=== PATIENT | male | born 1945 | race Caucasian/White ===

== ENCOUNTER → 2023-05-10 06:53 | Outpatient (REF) | payer OTHER, SELFPAY | LOC: RAD 06:53 | PROVIDERS: ATTENDING PHYSICIAN Internal Medicine Gastroenterology; FAMILY PHYSICIAN Family Medicine | DX: K70.30 Alcoholic cirrhosis of liver without ascites (principal) | CPT/HCPCS: 76700 ==

== ENCOUNTER 2023-08-15 15:10 | Inpatient (IN) | payer OTHER, SELFPAY ==
[2023-08-15] VITALS (14 sets, daily range): BP systolic 94–127; BP diastolic 60–87; BMI 25.3
[2023-08-15 08:43] LABS: % Basophils 0.1 % (0-2); % Eosinophils 2.2 % (0-6); % Immature Granulocytes 0.4 % (0-0.5); % Lymphocytes 14.6 % (20.5-51.1); % Monocytes 7.6 % (1.7-9.3); % Neutrophils 75.1 % (42.2-75.2); Absolute Eosinophils 0.3 10^3/uL (0-0.7); Absolute Immature Granulocytes 0.1 10^3/uL (0-0.05); Hematocrit 53.6 % (39.0-52.0); Hemoglobin 19.6 g/dL (13.0-18.0); Mean Corp Hgb Conc. 36.6 g/dL (33.0-37.0); Mean Corpuscular Hgb 33.1 pg (27.0-31.0); Mean Corpuscular Volume 90.5 fL (80.0-94.0); Mean Platelet Volume 10.4 fL (7.4-10.4); Nucleated Red Blood Cells % 0 % (-); Platelet Count 210 10^3/uL (130-400); Red Blood Cell Count 5.92 10^6/uL (4.70-6.10); Red Cell Dist. Width 13.6 % (11.5-14.5); White Blood Cell Count 13.4 10^3/uL (4.8-10.8)
[2023-08-15 08:56] LABS: ALT (SGPT) 24 U/L (0-50); AST (SGOT) 22 U/L (17-59); Albumin 4.4 g/dl (3.5-5.0); Alkaline Phosphatase 63 U/L (38-126); Blood Urea Nitrogen 15 mg/dl (9-20); Calcium 10.1 mg/dl (8.4-10.2); Carbon Dioxide 27 mmol/L (22-30); Chloride 103 mmol/L (98-107); Glucose 156 mg/dl (70-99); Potassium 5.2 mmol/L (3.5-5.1); Sodium 142 mmol/L (135-145); Total Bilirubin 1.8 mg/dl (0.2-1.3); Total Protein 7.4 g/dl (6.3-8.2); eGFR > 60.00
[2023-08-15 09:07] LABS: NT-proBNP 408 pg/ml; Troponin I < 0.012 ng/ml
--- NOTE | 2023-08-15 09:35 | ED.GENMED ---
History of Present Illness
General
Chief Complaint: Dizziness
Source: patient
Time Seen by Provider: 08/15/23 09:05
Travel History
Have you had any contact with someone who has COVID-19?: No
Do you have any symptoms of coronavirus? Fever > 100 degrees, chills, cough, shortness of breath, sore throat, loss of taste or smell, muscle aches, or headache?: No
History of Present Illness
History of Present Illness:
78-year-old male with past medical history of pulmonary fibrosis, hypertension presenting to the emergency department for evaluation of lightheadedness that started this past , during that time patient states he started to feel progressively
worse with symptoms including some mild shortness of breath, breaking out in cold sweats with exertion, low pulse ox and low blood pressure. Patient states that today his blood pressure was around 80/60 which had him concerned and came to the ER to
be further evaluated. Patient denies any known fevers, known sick contacts, recent travel or recent antibiotics. He denies any coughing, chest pain, bowel changes, urinary symptoms. He states he was having a hard time tolerating his medications
and he did not take his Cardizem or metoprolol due to concerns of already having a low blood pressure.
Past History
Past History
ED Past Medical History: HTN, Psychiatric and Other (Pulmonary fibrosis)
ED Past Surgical History: Orthopedic and Other (Ureteral obstruction at age 16)
Social History
Tobacco: Non-smoker
Alcohol: None
Drug: None
Personal:
Living: with family
Employment: Employed
Review of Systems
Review of Systems
All Other Systems: ROS reviewed and negative except as documented in HPI and ROS
Phy Exam
Physical Exam
Physical Exam:
GENERAL: Alert , in no apparent distress
HEAD: NCAT
EYE: clear conjunctiva
NECK: Supple
ENT: o/p clr, mmm.
CARDIAC: Tachycardic rate and rhythm, no murmur, heart rate between 134 and 142 bpm
LUNGS: Rales bibasilar which patient reports is common, no accessory muscle use, no tachypnea, no wheezing or rhonchi
ABDOMEN: Soft, without focal tenderness, no r/g, no cvat
NEUROLOGICAL: Alert and oriented
SKIN: Warm and dry, skin intact.
MUSCULOSKELETAL: no edema, well perfused.
PSYCH: Normal and appropriate interaction.
Scores
Heart Failure Risk
Heart Failure Risk Score: Not Applicable
Heart Score for Chest Pain Patients
STEMI patient?: Not applicable
Withdrawal Assessment of Alcohol
Withdrawal Assessment Completed?: Not applicable
Course
Orders/Labs/Results
Orders:
Orders
08/15/23 07:54
ECG [Electrocardiogram (*1)] Urgent
Reason for Study: Vertigo / Dizzy
EKG- Treatment ONCE
08/15/23 08:35
Complete Blood Count/With Diff Urgent
Comprehensive Metabolic Panel Urgent
NT-proBNP Urgent
Troponin I Urgent
08/15/23 09:17
0.9% Sodium Chloride 1000 ml [Nss] 1,000 ml IV BOLUS
08/15/23 09:18
Urinalysis Reflex To Culture Urgent
Date Specimen was Collected: 08/15/23
Time Specimen was Collected: 09:20
CR Chest - 2 Views Urgent
Comment:
Reason For Exam: mild hypoxia, tachy
08/15/23 09:19
Add On- LAB Urgent
Tests Added?: d-dimer
08/15/23 09:51
Lactic Acid Q4H
Comment: CANCEL 2nd LACTIC ACID IF 1st LACTIC ACID IS LESS THAN 2
PTT Urgent
Prothrombin Time Urgent
Blood Culture Q30M
MARQUIS Source: Blood/Venous
Specimen Description:
08/15/23 09:56
Blood Culture Q30M
MARQUIS Source: Blood/Venous
Specimen Description:
08/15/23 10:28
CefTRIAXone [Rocephin] 1,000 mg IV NOW STA
Doxycycline [Vibramycin] 100 mg PO NOW STA
08/15/23 11:55
COVID-19 Antigen Urgent
Source: Nasal Swab
08/15/23 13:30
Lactic Acid Q4H
Comment: CANCEL 2nd LACTIC ACID IF 1st LACTIC ACID IS LESS THAN 2
Abnormal Lab Results
08/15/23 08/15/23
08:35 09:51
WBC 13.4 H 10^3/uL
(4.8-10.8)
Hgb 19.6 H g/dL
(13.0-18.0)
Hct 53.6 H %
(39.0-52.0)
MCH 33.1 H pg
(27.0-31.0)
Abs Immat Gran (auto) 0.1 H 10^3/uL
(0-0.05)
Absolute Neuts (auto) 10.0 H 10^3/uL
(1.4-6.5)
Absolute Monos (auto) 1.0 H 10^3/uL
(0.1-0.6)
Lymphocytes % 14.6 L %
(20.5-51.1)
PT 15.4 H Sec
(11.4-14.6)
APTT 38.4 H Sec
(23.4-35.0)
Potassium 5.2 H mmol/L
(3.5-5.1)
Glucose 156 H mg/dl
(70-99)
Lactic Acid 2.8 H mmol/L
(0.7-2.0)
Total Bilirubin 1.8 H mg/dl
(0.2-1.3)
08/15/23 08:35
08/15/23 08:35
Vital Signs
Initial and Last Documented VS:
Initial Vital Signs
Pulse Resp BP Pulse Ox
148 18 127/87 96
08/15/23 07:51 08/15/23 07:51 08/15/23 07:51 08/15/23 07:51
Last Documented Vital Signs
Pulse Resp BP Pulse Ox
134 30 107/85 94
08/15/23 08:45 08/15/23 08:45 08/15/23 08:23 08/15/23 08:45
MDM/Problems Addressed
Differential Diagnosis Includes:
Pneumonia, exacerbation of pulmonary fibrosis, CHF, cardiac dysrhythmia, orthostasis
MDM/Problems Addressed:
78-year-old male presenting emergency department for evaluation of persistent lightheadedness over the last 3 to 4 days. He noted hypotension at home and he arrives to the emergency department here hypotensive with blood pressure of 94/6. Heart
rate between 134 and 102 bpm. He is afebrile with an oral temperature of 98.6. Patient is overall fairly well-appearing in no acute distress but vital signs are certainly concerning. Labs have been initiated upon arrival and show a leukocytosis
but no bandemia. Chemistry is unremarkable. Negative troponin as well as BNP. 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 Will check a chest x-ray to further assess. Fluids ordered. Reassessment following.
Chronic conditions affecting care: Other (Pulmonary fibrosis)
*Radiology
Radiology exam reviewed: radiology read reviewed
*Pulse Oximetry
Patient hypoxic: no
*EKG
Interpreted by ED Provider?: Yes
Heart Rate: 137
Rate: tachycardiac
Rhythm: sinus
Ischemia: non-specific ST changes (lateral leads)
*Lobby Porter Interpretation
Rate: tachycardiac
Rhythm: sinus
*Critical Care Note
Total Time (30-74mins, 75-104mins- exclusive of procedures): Not Applicable
Data Reviewed
Review of Other/Old Records Reveals: Labs and Records
Source: patient and records
Patient Management
Discussion with other providers: Hospitalist
Escalation/DeEscalation of care consider admission/obs:
Patient's chest x-ray shows changes consistent with his pulmonary fibrosis and emphysema. Lab work shows leukocytosis with an elevated lactic acid. Patient's heart rate is improved with IV fluids however still tachycardic around 120 bpm. Given
his vital sign abnormalities combined with his lab work decision was made to treat patient for community-acquired pneumonia. Will admit to hospitalist service who accepts for continued evaluation and treatment.
ED Attending Note
-
Portions of this chart may have been created with voice recognition software.� Occasional wrong word or��sound alike� substitutions may have occurred due to the inherent limitations of voice recognition software.
Discharge Plan
Departure
Patient Disposition: Admit
Date of Disposition: 08/15/23
Time of Disposition: 10:35
Presentation/result/management discussed w/ accepting MD/DO: Hospitalist
Discharge Problem:
Pulmonary fibrosis, Hypotension, unspecified
Prescriptions:
No Action
atorvastatin 40 mg Tablet
40 mg PO QPM
aspirin 81 mg Tablet,Delayed Release (Dr/Ec)
81 mg PO DAILY
spironolactone 25 mg Tablet
12.5 mg PO DAILY
diltiazem HCl 120 mg Capsule,Extended Release 24 Hr
120 mg PO DAILY
pirfenidone [Esbriet] 267 mg Capsule
801 mg PO TID
metoprolol succinate [Toprol XL] 50 mg Tablet Extended Release 24 Hr
50 mg PO BID
gabapentin 300 mg Capsule
300 mg PO TID
duloxetine [Cymbalta] 30 mg Capsule,Delayed Release(Dr/Ec)
30 mg PO BID
Wegovy 1.7 mg/0.75 mL Pen Injector
1.7 mg SC HOLLAND
Referrals:
Cleveland Keys MD [Family Provider] -
Interventions
Interventions:
*ED COVID-19 Vaccine History Last Done: 08/15/23 08:00
Discharge Date and Time
Print Language: CONGOLESE
[2023-08-15] MEDS: NSS 1000 IV (09:46)
[2023-08-15 10:27] LABS: Lactic Acid 2.8 mmol/L (0.7-2.0)
[2023-08-15 11:00] LABS: INR 1.24; PT 15.4 Sec (11.4-14.6)
[2023-08-15 11:01] LABS: APTT 38.4 Sec (23.4-35.0)
[2023-08-15] MEDS: ROCEPHIN 1000 MG IV (11:33)
[2023-08-15] MEDS: VIBRAMYCIN 100 MG PO (11:34)
[2023-08-15 12:20] LABS: COVID-19 Antigen Negative (Negative)
--- NOTE | 2023-08-15 14:58 | HPS.HSE ---
Addendum entered and electronically signed by Leo Murray MD 08/15/23 15:24:
Broadened to vancomycin, Zosyn decompensated; follow-up MRSA swab
Original Note:
Family Physician
-
Family Physician: Cleveland Keys
Chief Complaint
-
Hypertension, lightheaded
History of Present Illness
78-year-old male with past medical history of hypertension, CAD, pulmonary fibrosis now presenting for lightheadedness. Patient symptoms started this past , continue to get worse. Associate symptoms include mild shortness of breath,
diaphoresis with exertion. Also noted to have lower pulse ox and blood pressure. Blood pressure was noted to be 80/60 which prompted hospital evaluation. Patient denies sick contacts, otherwise no fever or chills, recent travel. No productive
cough, chest pain, diarrhea, urinary symptoms. BP noted to be 96/70, heart rate 120, respiratory rate 28, 93% on room air. White count 13.4, potassium 5.2, lactate 2.8, total bilirubin 1.8 although alk phos 63. Pending UA. SARS-CoV-2 negative.
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 Has had urine cultures positive for Klebsiella pneumoniae in the past.
Medical History
Past Medical History
Past Medical History: Reports Other
Additional Past Medical History:
chronic right UPJ obstruction, hepatitis, hepatic cirrhosis, pulmonary fibrosis, hypertension, and coronary artery disease
Past Surgical History: Reports Other
Additional Past Surgical History:
Right rotator cuff repair, left lung biopsy, right ureteral obstruction surgery when he was 16
Social History
Tobacco: Former Smoker
Alcohol: Former
Drug: None
Family History
Family History: Not pertinent
Allergies / Home Medications
Allergies reflects when Allergies were last updated in [facility].
Home Medications with original date entered in [facility]
Allergy/Medication List:
Allergies
Allergy/AdvReac Type Severity Reaction Status Date / Time
Penicillins Allergy swelling Verified 12/13/21 08:58
of hands
Home Medications Table - record
Medication Instructions Recorded Confirmed
acetaminophen 325 mg tablet 650 mg PO Q4HPRN PRN rib pains 09/27/22 09/27/22
(Tylenol)
aspirin 81 mg tablet,delayed 81 mg PO DAILY 09/27/22 09/27/22
release
atorvastatin 40 mg tablet 40 mg PO QPM 09/27/22 09/27/22
diltiazem HCl 120 mg capsule,24 120 mg PO DAILY 09/27/22 09/27/22
hr,extended release
metoprolol succinate 50 mg 50 mg PO BID 09/27/22 09/27/22
tablet,extended release 24 hr
(Toprol XL)
pirfenidone 267 mg capsule 801 mg PO TID 09/27/22 09/27/22
(Esbriet)
spironolactone 25 mg tablet 12.5 mg PO DAILY 09/27/22 09/27/22
ticagrelor 90 mg tablet (Brilinta) 90 mg PO BID 09/27/22 09/27/22
Review of Systems
-
History Source: Patient
A 12 point ROS was completed and negative except as noted: Yes
Physical Exam
Vital Signs
Vital Signs
Pulse Resp BP Pulse Ox
120 28 107/76 93
08/15/23 13:00 08/15/23 13:00 08/15/23 13:00 08/15/23 13:00
Physical Exam
General: Well Developed and Well Nourished
HEENT: NormoCephalic
Respiratory: Other (ales bibasilar which patient reports is common, no accessory muscle use, no tachypnea, no wheezing or rhonchi)
Cardiac: S1/S2 and Tachycardia
GI: Non Tender
Musculoskeletal: No Clubbing
Skin: Warm and Dry
Neuro: Awake, Alert, Oriented and AO x 3
Hematologic/Lymphatic: No Lymphadenopathy
Psych: Calm
Laboratory Results
-
08/15/23 08:35
08/15/23 08:35
Laboratory Results
PT 15.4 Sec (11.4-14.6) H 08/15/23 09:51
INR 1.24 08/15/23 09:51
APTT 38.4 Sec (23.4-35.0) H 08/15/23 09:51
Lactic Acid 2.8 mmol/L (0.7-2.0) H 08/15/23 09:51
Total Bilirubin 1.8 mg/dl (0.2-1.3) H 08/15/23 08:35
AST 22 U/L (17-59) 08/15/23 08:35
ALT 24 U/L (0-50) 08/15/23 08:35
Alkaline Phosphatase 63 U/L (38-126) 08/15/23 08:35
Troponin I < 0.012 ng/ml 08/15/23 08:35
Data Reviewed
-
Diagnostic Radiology: Image Personally Visualized and interpreted and Report Reviewed by me
Lab Data: Labs Reviewed by me
Impression/Plan
-
IMPRESSION:
78-year-old male with past medical history of hypertension, CAD, pulmonary fibrosis now presenting for lightheadedness. Admitted for hypotension, suspected to be in severe sepsis. Cannot rule out cardiac cause.
PLAN:
#Severe sepsis
� maintain MAP greater than 65
� Possible urinary source although does not have any symptoms. 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
- No obvious pulmonary pathology on x-ray although difficult to ascertain due to known pulmonary fibrosis
� Follow-up procalcitonin, possibly has a retrocardiac opacity
� Continue ceftriaxone, azithromycin
� Follow-up blood cultures, sputum cultures if expectorating, urine cultures
� Ensure lactate trending down
� IV fluids, 1 bolus now, continuous IV fluids for least 1 day
� Hold antihypertensives
#Dyspnea
�Possibly secondary to sepsis although has history of CAD
� Treat as above
� Maintain O2 over 92%
� Follow-up troponins
� Follow-up echo to ensure no wall motion abnormality
� No chest pain
� Continue aspirin, statin
#Hyperkalemia
� Mild
� Continue to monitor
#Hepatic cirrhosis
#Hepatitis C
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
#Pulmonary fibrosis
see plan above
Sees pulmonology outpatient in [place]
He is on Esbriet [place].
#Benign essential hypertension
Holding spironolactone, diltiazem and metoprolol due to severe sepsis
#Coronary artery disease
No chest pain
Continue aspirin, statin
- was on ?Brilinta in the past
DVT prophylaxis�HSQ
Full code
[2023-08-15 15:45] LABS: Urine Albumin Trace (Neg - Trace); Urine Bilirubin 1+ (Negative); Urine Character Slightly Cloudy (Clear); Urine Color Yellow; Urine Glucose Negative (Negative); Urine Ketone Trace (Negative); Urine Leukocyte Trace (Negative); Urine Nitrite Negative (Negative); Urine Occult Blood Negative (Negative); Urine Specific Gravity 1.015 (<1.030); Urine Urobilinogen 1+ (Neg - 1+)
[2023-08-15 15:53] LABS: Lactic Acid 1.7 mmol/L (0.7-2.0)
[2023-08-15 15:59] LABS: Urine Bacteria Few (Negative); Urine Mucus Few
[2023-08-15 16:00] LABS: Urine Red Blood Cell 0-2 /HPF (0-2); Urine White Cell 0-2 /HPF (0-5)
[2023-08-15] MEDS: NEURONTIN 300 MG PO ×2 (17:07→21:00)
[2023-08-15] MEDS: LIPITOR 40 MG PO (17:07)
[2023-08-15] MEDS: HEPARIN 5000 UNITS SC (17:07)
[2023-08-15] MEDS: ASPIR LOW (ENTERIC COATED) 81 MG PO (17:07)
[2023-08-15] MEDS: LR 1000 IV ×2 (17:09→18:23)
--- NOTE | 2023-08-15 17:10 | W.PN.UPDATE ---
Update Note
Progress Note Update
Received text from RN that patient is allergic to azithromycin. Discussed with primary attending will DC azithromycin and start patient on doxycycline. Orders placed.
[2023-08-15 17:30] LABS: Troponin I 0.013 ng/ml
[2023-08-15 17:38] LABS: Procalcitonin 0.06 ng/ml (0.0-0.25)
[2023-08-15] MEDS: NON-FORMULARY ITEM 801 MG PO (17:59)
[2023-08-15] MEDS: ZOFRAN 4 MG IV (18:00)
[2023-08-15] MEDS: CYMBALTA DELAYED RELEASE 30 MG PO (20:23)
[2023-08-15] MEDS: VIBRAMYCIN 260 MG IV (21:23)
[2023-08-15] MEDS: NON-FORMULARY ITEM 1 MG PO (21:25)
[2023-08-15 22:26] LABS: Troponin I < 0.012 ng/ml
[2023-08-16] VITALS (7 sets, daily range): BP systolic 102–125; BP diastolic 63–78; PULSE 91; O2SAT 94
[2023-08-16] MEDS: HEPARIN 5000 UNITS SC (01:03)
[2023-08-16 04:46] LABS: Hematocrit 38.3 % (39.0-52.0); Hemoglobin 13.9 g/dL (13.0-18.0); Mean Corp Hgb Conc. 36.3 g/dL (33.0-37.0); Mean Corpuscular Hgb 32.9 pg (27.0-31.0); Mean Corpuscular Volume 90.8 fL (80.0-94.0); Mean Platelet Volume 9.8 fL (7.4-10.4); Platelet Count 89 10^3/uL (130-400); Red Blood Cell Count 4.22 10^6/uL (4.70-6.10); Red Cell Dist. Width 13.4 % (11.5-14.5); White Blood Cell Count 6.3 10^3/uL (4.8-10.8)
[2023-08-16 05:03] LABS: Troponin I < 0.012 ng/ml
[2023-08-16 05:19] LABS: Blood Urea Nitrogen 12 mg/dl (9-20); Calcium 8.6 mg/dl (8.4-10.2); Carbon Dioxide 28 mmol/L (22-30); Chloride 107 mmol/L (98-107); Estimated Creatinine Clearance 81 ml/min; Glucose 90 mg/dl (70-99); Potassium 3.8 mmol/L (3.5-5.1); Sodium 139 mmol/L (135-145); eGFR > 60.00
[2023-08-16 05:39] LABS: TSH 0.87 uIU/ml (0.47-4.68)
[2023-08-16] MEDS: LR 1000 IV (05:45)
--- NOTE | 2023-08-16 09:51 | W.PN.HOSP.TC ---
Today's Communication/Plan
-
see A/P
Assessment / Plan
Assessment / Plan
HPI: 78-year-old male with past medical history of hypertension, CAD, pulmonary fibrosis; p/w lightheadedness, mild shortness of breath, diaphoresis with exertion. Also noted to have lower pulse ox and blood pressure (noted to be 80/60 which
prompted hospital evaluation).
Patient denies sick contacts, otherwise no fever or chills, recent travel. No productive cough, chest pain, diarrhea, urinary symptoms.
CXR:
1. MODERATE COMBINED EMPHYSEMA and INTERSTITIAL PULMONARY FIBROSIS.
2. Severe calcific atherosclerotic plaque in the coronary arteries.
A/P:
# Severe sepsis POA
# resolved lactic acidosis
Possible urinary source although does not have any symptoms. 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
follow blood Cx, urine Cx
Procal 0.06
COVID negative
No obvious pulmonary pathology on x-ray although difficult to ascertain due to known pulmonary fibrosis
Continue ceftriaxone, changed azithromycin to doxycycline due to allergy history
hold further IVF with improved BP
Hold antihypertensives spironolactone, diltiazem and metoprolol due to severe sepsis
# Dyspnea, Possibly secondary to sepsis although has history of CAD
No chest pain
Maintain O2 over 92%
troponins negative
Can check echo
Continue aspirin, statin
# Hyperkalemia
Mild and resolved
# Hepatic cirrhosis
# Hepatitis C
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
# Pulmonary fibrosis
Sees pulmonology outpatient in [place]
He is on Esbriet [place].
# Benign essential hypertension
Holding spironolactone, diltiazem and metoprolol due to severe sepsis
# Coronary artery disease
No chest pain
Continue aspirin, statin
was on ?Brilinta in the past
DVT prophylaxis�HSQ
Full code
Anticipated Discharge: > 48 hours
Subjective/Interval History
-
Date of Service: August 16, 2023
Objective Data
-
Labs:
Laboratory Results
08/16/23
04:30
WBC 6.3
Hgb 13.9 D
Hct 38.3 L
Plt Count 89 L D
Sodium 139
Potassium 3.8 D
Chloride 107
Carbon Dioxide 28
BUN 12
Creatinine 0.8
Glucose 90
Calcium 8.6 D
Vital Signs:
Vital Signs
Temp Pulse Resp BP Pulse Ox
36.9 C 95 16 110/68 95
08/16/23 07:20 08/16/23 07:20 08/16/23 07:20 08/16/23 07:20 08/16/23 07:20
I&O
08/15/23 08/16/23 08/17/23
06:59 06:59 06:59
Intake Total 1480 / 1480
Output Total 100 / 100
Balance 1380 / 1380
Review of Systems
-
All other systems: Reviewed and negative
Physical Exam
-
General: Well Developed, Well Nourished, No Apparent Distress, Comfortable and Conversant; Negative Respiratory Distress
HEENT: Normocephalic, Atraumatic, Nose Appears Normal and Ears Appear Normal; Negative Oxygen
Respiratory: Clear to Auscultation and Non Labored Respirations; Negative Accessory Resp Muscle Use
Cardiac: Regular Rhythm, S1/S2 and Tachycardic
GI: Soft, Nontender, Nondistended and Normal Bowel Sounds
Skin: Warm and Dry
Neuro: Awake, Alert, Oriented, AO x 3 and Nonfocal/Grossly Intact
Psych: Calm and Intact Judgement/Insight
Data Reviewed
-
Diagnostic Radiology: Report Reviewed by me
Labs: Labs Reviewed by me
[2023-08-16] MEDS: NEURONTIN 300 MG PO ×3 (10:21→21:26)
[2023-08-16] MEDS: CYMBALTA DELAYED RELEASE 30 MG PO ×2 (10:21→20:35)
[2023-08-16] MEDS: NON-FORMULARY ITEM 801 MG PO ×3 (10:22→21:26)
[2023-08-16] MEDS: HEPARIN SC (10:22)
[2023-08-16] MEDS: ASPIR LOW (ENTERIC COATED) 81 MG PO (10:25)
[2023-08-16] MEDS: VIBRAMYCIN 260 MG IV (10:26)
[2023-08-16] MEDS: FLUSH (NSS) 1 FLUSH IV ×2 (12:48→12:49)
[2023-08-16] MEDS: STERILE WATER FOR INJECTION 10 ML IV (12:49)
[2023-08-16] MEDS: ROCEPHIN 1000 MG IV (12:50)
[2023-08-16] MEDS: LIPITOR 40 MG PO (17:02)
[2023-08-16] MEDS: LOVENOX 40 MG SC (17:04)
[2023-08-16] MEDS: VIBRAMYCIN 100 MG PO (20:34)
[2023-08-17] VITALS (7 sets, daily range): BP systolic 123–171; BP diastolic 73–95
[2023-08-17 06:29] LABS: Mean Corp Hgb Conc. 35.1 g/dL (33.0-37.0); Mean Corpuscular Hgb 32.6 pg (27.0-31.0); Mean Corpuscular Volume 92.7 fL (80.0-94.0); Platelet Count 67 10^3/uL (130-400); Red Blood Cell Count 3.99 10^6/uL (4.70-6.10); Red Cell Dist. Width 13.4 % (11.5-14.5)
[2023-08-17 06:43] LABS: Blood Urea Nitrogen 9 mg/dl (9-20); Calcium 8.6 mg/dl (8.4-10.2); Carbon Dioxide 29 mmol/L (22-30); Chloride 106 mmol/L (98-107); Estimated Creatinine Clearance 81 ml/min; Glucose 84 mg/dl (70-99); Magnesium 1.7 mg/dl (1.6-2.3); Sodium 139 mmol/L (135-145); eGFR > 60.00
--- NOTE | 2023-08-17 09:24 | W.PN.HOSP.TC ---
Today's Communication/Plan
-
see A/P
Assessment / Plan
Assessment / Plan
HPI: 78-year-old male with past medical history of hypertension, CAD, pulmonary fibrosis; p/w lightheadedness, mild shortness of breath, diaphoresis with exertion. Also noted to have lower pulse ox and blood pressure (noted to be 80/60 which
prompted hospital evaluation).
Patient denies sick contacts, otherwise no fever or chills, recent travel. No productive cough, chest pain, diarrhea, urinary symptoms.
CXR:
1. MODERATE COMBINED EMPHYSEMA and INTERSTITIAL PULMONARY FIBROSIS.
2. Severe calcific atherosclerotic plaque in the coronary arteries.
A/P:
# Severe sepsis POA
# Resolved lactic acidosis
Possible urinary source although does not have any symptoms. 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
Follow urine Cx
blood culture negative, Procal 0.06, COVID negative, MRSA noted positive
No obvious pulmonary pathology on x-ray although difficult to ascertain due to known pulmonary fibrosis
Continue ceftriaxone, changed azithromycin to doxycycline due to allergy history
hold further IVF with improved BP
Hold antihypertensives spironolactone, diltiazem and metoprolol due to severe sepsis
# Dyspnea, possibly secondary to sepsis although has history of CAD
No chest pain, troponin negative
Echo unrevealing: EF 50-55%. Normal diastolic function.
Continue aspirin, statin
# Hyperkalemia
Mild and resolved
# Hepatic cirrhosis
# Hepatitis C
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
# Pulmonary fibrosis
Sees pulmonology outpatient in [place]
He is on Esbriet [place].
# Benign essential hypertension
Holding spironolactone, diltiazem and metoprolol due to severe sepsis
may need to resume when BP starts to rise
# Coronary artery disease
No chest pain
Continue aspirin, statin
DVT prophylaxis�HSQ
Full code
DW RN
Anticipated Discharge: 24 - 48 hours
Subjective/Interval History
-
Date of Service: August 17, 2023
Objective Data
-
Labs:
Laboratory Results
08/17/23
05:10
WBC 4.0 L
Hgb 13.0
Hct 37.0 L
Plt Count 67 L D
Sodium 139
Potassium 4.0
Chloride 106
Carbon Dioxide 29
BUN 9
Creatinine 0.8
Glucose 84
Calcium 8.6
Vital Signs:
Vital Signs
Temp Pulse Resp BP Pulse Ox
37.0 C 78 16 123/73 97
08/17/23 07:15 08/17/23 07:15 08/17/23 07:15 08/17/23 07:15 08/17/23 07:15
I&O
08/16/23 08/17/23 08/18/23
06:59 06:59 06:59
Intake Total 1480 / 1480 960 / 960
Output Total 100 / 100
Balance 1380 / 1380 960 / 960
Review of Systems
-
All other systems: Reviewed and negative
Physical Exam
-
General: Well Developed, Well Nourished, No Apparent Distress, Comfortable and Conversant; Negative Respiratory Distress
HEENT: Normocephalic, Atraumatic, Nose Appears Normal and Ears Appear Normal; Negative Oxygen
Respiratory: Clear to Auscultation and Non Labored Respirations; Negative Accessory Resp Muscle Use
Cardiac: Regular Rhythm and S1/S2
GI: Soft, Nontender, Nondistended and Normal Bowel Sounds
Skin: Warm and Dry
Neuro: Awake, Alert, Oriented, AO x 3 and Nonfocal/Grossly Intact
Psych: Calm and Intact Judgement/Insight
Data Reviewed
-
Diagnostic Radiology: Report Reviewed by me
Labs: Labs Reviewed by me
[2023-08-17] MEDS: NEURONTIN 300 MG PO ×3 (09:30→21:31)
[2023-08-17] MEDS: VIBRAMYCIN 100 MG PO ×2 (09:30→21:31)
[2023-08-17] MEDS: ASPIR LOW (ENTERIC COATED) 81 MG PO (09:30)
[2023-08-17] MEDS: NON-FORMULARY ITEM 801 MG PO ×3 (09:30→21:31)
[2023-08-17] MEDS: CYMBALTA DELAYED RELEASE 30 MG PO ×2 (09:30→21:30)
[2023-08-17] MEDS: STERILE WATER FOR INJECTION 10 ML IV (12:09)
[2023-08-17] MEDS: FLUSH (NSS) 1 FLUSH IV ×2 (12:09→12:10)
[2023-08-17] MEDS: ROCEPHIN 1000 MG IV (12:09)
--- NOTE | 2023-08-17 13:48 | CM ---
CM met with Lex briefly this am; he is transferring to another unit.
Lex lives with his and anticipates returning home at discharge. PT eval completed and no need for continued therapy.
Plan: Discharge to home with no services anticipated.
PCP: Cleveland Keys
[2023-08-17] MEDS: TOPROL XL 50 MG PO ×2 (14:43→21:31)
[2023-08-17] MEDS: ALDACTONE 12.5 MG PO (14:43)
--- NOTE | 2023-08-17 15:06 | CM ---
CM met with Lex briefly this am; he is transferring to another unit.
Lex lives with his partner and anticipates returning home at discharge. PT eval completed and no need for continued therapy.
Plan: Discharge to home with no services anticipated.
PCP: Cleveland Keys
[2023-08-17] MEDS: LOVENOX 40 MG SC (17:02)
[2023-08-17] MEDS: LIPITOR 40 MG PO (17:02)
[2023-08-18 03:20] VITALS: BP 130/78
[2023-08-18 06:19] LABS: Hematocrit 37.4 % (39.0-52.0); Hemoglobin 13.4 g/dL (13.0-18.0); Mean Corp Hgb Conc. 35.8 g/dL (33.0-37.0); Mean Corpuscular Hgb 32.8 pg (27.0-31.0); Mean Corpuscular Volume 91.7 fL (80.0-94.0); Mean Platelet Volume 10.2 fL (7.4-10.4); Platelet Count 75 10^3/uL (130-400); Red Blood Cell Count 4.08 10^6/uL (4.70-6.10); Red Cell Dist. Width 13.2 % (11.5-14.5); White Blood Cell Count 4.4 10^3/uL (4.8-10.8)
[2023-08-18 06:42] LABS: Blood Urea Nitrogen 10 mg/dl (9-20); Calcium 8.8 mg/dl (8.4-10.2); Carbon Dioxide 29 mmol/L (22-30); Chloride 104 mmol/L (98-107); Estimated Creatinine Clearance 81 ml/min; Glucose 78 mg/dl (70-99); Magnesium 1.8 mg/dl (1.6-2.3); Potassium 4.1 mmol/L (3.5-5.1); Sodium 138 mmol/L (135-145); eGFR > 60.00
[2023-08-18 07:00] VITALS: BP 143/82
[2023-08-18] MEDS: CYMBALTA DELAYED RELEASE 30 MG PO (07:54)
[2023-08-18] MEDS: VIBRAMYCIN 100 MG PO (07:54)
[2023-08-18] MEDS: ASPIR LOW (ENTERIC COATED) 81 MG PO (07:55)
[2023-08-18] MEDS: ALDACTONE 12.5 MG PO (07:55)
[2023-08-18] MEDS: NON-FORMULARY ITEM 801 MG PO (07:55)
[2023-08-18] MEDS: TOPROL XL 50 MG PO (07:55)
[2023-08-18] MEDS: NEURONTIN 300 MG PO (07:55)
[2023-08-18 11:00] VITALS: BP 129/80
[2023-08-18] MEDS: STERILE WATER FOR INJECTION 10 ML IV (12:09)
[2023-08-18] MEDS: ROCEPHIN 1000 MG IV (12:10)
[2023-08-18] MEDS: FLUSH (NSS) IV ×2 (12:13)
[2023-08-18 12:44] VITALS: BP 144/83; PULSE 84; O2SAT 95
--- NOTE | 2023-08-18 12:49 | PTOTSP ---
Pt is independent with ambulation withou need for any assistive devices. He is able to climb stairs unassisted. He is able to don his own shoes. No PT needs were identified. PT will sign off. Ok for dc to home from PT standpoint.
--- NOTE | 2023-08-18 12:54 | W.PN.HOSP.TC ---
Addendum entered and electronically signed by Emely Kang MD 08/18/23 14:26:
total DC time 35 min
Original Note:
Today's Communication/Plan
-
see A/P
DC home today
Assessment / Plan
Assessment / Plan
HPI: 78-year-old male with past medical history of hypertension, CAD, pulmonary fibrosis; p/w lightheadedness, mild shortness of breath, diaphoresis with exertion. Also noted to have lower pulse ox and blood pressure (noted to be 80/60 which
prompted hospital evaluation).
Patient denies sick contacts, otherwise no fever or chills, recent travel. No productive cough, chest pain, diarrhea, urinary symptoms.
CXR:
1. MODERATE COMBINED EMPHYSEMA and INTERSTITIAL PULMONARY FIBROSIS.
2. Severe calcific atherosclerotic plaque in the coronary arteries.
A/P:
# Severe sepsis POA, unclear source
# Resolved lactic acidosis
Panculture and infectious work up unrevealing: urine Cx no growth , blood culture negative, Procal 0.06, COVID negative, MRSA noted positive
No obvious pulmonary pathology on x-ray
Since pt improved on current Abx ceftriaxone and doxycycline, would continue short course total 5 days. DC with Cefdinir and doxycycline for 2 more days
off further IVF with improved BP
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
# Dyspnea, possibly secondary to sepsis although has history of CAD
No chest pain, troponin negative
Echo unrevealing: EF 50-55%. Normal diastolic function.
Continue aspirin, statin
# Hyperkalemia
Mild and resolved
# Hepatic cirrhosis
# Hepatitis C
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
# Pulmonary fibrosis
Sees pulmonology outpatient in [place]
He is on Esbriet [place].
# Benign essential hypertension
Holding spironolactone, diltiazem and metoprolol due to severe sepsis
may need to resume when BP starts to rise
# Coronary artery disease
No chest pain
Continue aspirin, statin
DVT prophylaxis�HSQ
Full code
Anticipated Discharge: Today
Subjective/Interval History
-
Date of Service: August 18, 2023
Objective Data
-
Labs:
Laboratory Results
08/18/23
05:56
WBC 4.4 L
Hgb 13.4
Hct 37.4 L
Plt Count 75 L
Sodium 138
Potassium 4.1
Chloride 104
Carbon Dioxide 29
BUN 10
Creatinine 0.8
Glucose 78
Calcium 8.8
Vital Signs:
Vital Signs
Temp Pulse Resp BP Pulse Ox
36.8 C 79 18 129/80 98
08/18/23 11:00 08/18/23 11:00 08/18/23 11:00 08/18/23 11:00 08/18/23 11:00
I&O
08/17/23 08/18/23 08/19/23
06:59 06:59 06:59
Intake Total 960 / 960 960 / 960
Balance 960 / 960 960 / 960
Review of Systems
-
All other systems: Reviewed and negative
Physical Exam
-
General: Well Developed, Well Nourished, No Apparent Distress, Comfortable and Conversant; Negative Respiratory Distress
HEENT: Normocephalic, Atraumatic, Nose Appears Normal and Ears Appear Normal; Negative Oxygen
Respiratory: Clear to Auscultation and Non Labored Respirations; Negative Accessory Resp Muscle Use
Cardiac: Regular Rhythm and S1/S2
GI: Soft, Nontender, Nondistended and Normal Bowel Sounds
Skin: Warm and Dry
Neuro: Awake, Alert, Oriented, AO x 3 and Nonfocal/Grossly Intact
Psych: Calm and Intact Judgement/Insight
Data Reviewed
-
Diagnostic Radiology: Report Reviewed by me
Labs: Labs Reviewed by me
--- NOTE | 2023-08-18 14:12 | W.DCSUMMARY ---
Discharge Summary
Discharge Data
Date of Admission: 08/15/23
Date of Discharge: 08/18/23
-
Pending Results: No
Hospital Course
Principal Diagnosis:
Severe sepsis on admission, unclear source
Resolved lactic acidosis
Chronic Diagnoses:�
Hepatic cirrhosis
Hepatitis C
Pulmonary fibrosis
Benign essential hypertension
Coronary artery disease
Consultations:�
None
Procedures:�
None
Clinical course:�
This is a 78-year-old male with past medical history as stated above, who presented with lightheadedness, mild shortness of breath, diaphoresis with exertion and was noted to have lower pulse ox and low blood pressure.
Problem 1:
Severe sepsis on admission, unclear source.
His panculture and infectious work up this admission were unrevealing: urine culture no growth , blood culture negative, Procal negative at 0.06, COVID negative, MRSA was noted positive.
There was no obvious pulmonary pathology on his chest x-ray.
The patient was started with empiric antibiotics ceftriaxone and doxycycline, and given he improved on antibiotics, he was recommended to continue and complete a short course of 5 days total.
The patient was discharged with cefdinir and doxycycline for 2 more days.
With improvement in his blood pressure, his prior to admission spironolactone, diltiazem and metoprolol were restarted.
As for the rest of his medical problems, they were stable during his hospital stay.
Discharge Plan
-
Patient Disposition: Home (Routine Discharge)
Discharge Diagnosis/Procedures: unclear source of infection
Condition: Good
Diet: As tolerated, Low Fat, Low Cholesterol and Low Sodium
Activity: As tolerated
Driving Restrictions: As prior to admission
Referrals:
Cleveland Keys MD [Family Provider] - in less than 1 week
Additional Discharge Medication Instructions: Continue Cefdinir and doxycycline for 2 more days.
Avoid the sun and dairy product (milk/cheese etc.) while on doxycycline
Prescriptions:
New
cefdinir 300 mg capsule
300 mg PO Q12H 2 Days Qty: 4 0RF
doxycycline hyclate 100 mg capsule
100 mg PO BID 2 Days Qty: 4 0RF
Continued
atorvastatin 40 mg Tablet
40 mg PO QPM
aspirin 81 mg Tablet,Delayed Release (Dr/Ec)
81 mg PO DAILY
spironolactone 25 mg Tablet
12.5 mg PO DAILY
diltiazem HCl 120 mg Capsule,Extended Release 24 Hr
120 mg PO DAILY
pirfenidone [Esbriet] 267 mg Capsule
801 mg PO TID
metoprolol succinate [Toprol XL] 50 mg Tablet Extended Release 24 Hr
50 mg PO BID
gabapentin 300 mg Capsule
300 mg PO TID
duloxetine [Cymbalta] 30 mg Capsule,Delayed Release(Dr/Ec)
30 mg PO BID
Wegovy 1.7 mg/0.75 mL Pen Injector
1.7 mg SC HOLLAND
Discharge Orders:
Discharge Patient (As Directed); Ordered 08/18/23
Ordered By: Emely Kang
Discharge Date and Time
Print Language: CZECH
[2023-08-18 15:03] VITALS: BP 124/75
== END 2023-08-18 15:59 | disposition home or self-care (01) | DRG 872 ==
LOC: 3 WEST ACU 15:10
PROVIDERS: Emergency Medicine; Physician Assistant Medical; ADMITTING PHYSICIAN Internal Medicine; ATTENDING PHYSICIAN Internal Medicine; EMERGENCY PHYSICIAN Emergency Medicine; FAMILY PHYSICIAN Family Medicine
DX: A41.9 Sepsis, unspecified organism (principal); E87.20 Acidosis, unspecified; Q62.11 Congenital occlusion of ureteropelvic junction; R65.20 Severe sepsis without septic shock; K74.60 Unspecified cirrhosis of liver; B19.20 Unspecified viral hepatitis C without hepatic coma; J84.10 Pulmonary fibrosis, unspecified; I10 Essential (primary) hypertension; I25.10 Atherosclerotic heart disease of native coronary artery without angina pectoris; J43.9 Emphysema, unspecified; E87.5 Hyperkalemia; Z11.52 Encounter for screening for COVID-19; Z88.1 Allergy status to other antibiotic agents; Z87.891 Personal history of nicotine dependence; Z79.82 Long term (current) use of aspirin
CPT/HCPCS: 71046; 80048; 80053; 81003; 81015; 83605; 83735; 83880; 84145; 84443; 84484; 85025; 85027; 85610; 85730; 87040; 87070; 87086; 87147; 87811; 93005; 93306; 96361; 96374; 97116; 97162; 97530; 99285

== ENCOUNTER → 2023-11-23 07:02 | Outpatient (REF) | payer OTHER, SELFPAY | LOC: RAD 07:02 | PROVIDERS: ATTENDING PHYSICIAN Internal Medicine Gastroenterology; FAMILY PHYSICIAN Family Medicine | DX: K70.30 Alcoholic cirrhosis of liver without ascites (principal) | CPT/HCPCS: 76700 ==

== ENCOUNTER → 2024-01-21 06:28 | Outpatient (REF) | payer OTHER, SELFPAY | LOC: RAD 06:28 | PROVIDERS: ATTENDING PHYSICIAN Internal Medicine; FAMILY PHYSICIAN Family Medicine | DX: J84.112 Idiopathic pulmonary fibrosis (principal) | CPT/HCPCS: 71250 ==

== ENCOUNTER → 2024-05-26 07:07 | Outpatient (REF) | payer OTHER, SELFPAY | LOC: RAD 07:07 | PROVIDERS: ATTENDING PHYSICIAN Internal Medicine Gastroenterology; FAMILY PHYSICIAN Family Medicine | DX: K70.30 Alcoholic cirrhosis of liver without ascites (principal) | CPT/HCPCS: 76700 ==

== ENCOUNTER 2024-09-25 05:35 | Emergency (ER) | payer OTHER, SELFPAY ==
[2024-09-25 05:39] VITALS: BP 128/86
--- NOTE | 2024-09-25 06:29 | ED.GENMED ---
History of Present Illness
<Mendel Talbot MD, Resident - Last Filed: 09/25/24 09:44>
General
Chief Complaint: Abdominal Symptoms
Source: patient
Time Seen by Provider: 09/25/24 06:17
Nursing documentation reviewed up to this point in time: agreed with
History of Present Illness
History of Present Illness:
This is a 79-year-old male with known history of pulmonary fibrosis, atrial tachycardia, hypertension, CAD, hyperlipidemia, history of dilated aortic root presenting in the emergency department today with complaints of diarrhea, vomiting and
abdominal pain. Patient reports that last week on Wednesday he started to have flulike symptoms including runny nose and fatigue which eventually resolved however on Wednesday he had multiple episodes of watery diarrhea, multiple episodes of vomiting
and nausea. Denies any blood in stools or vomit. Denies any fevers or chills. Diarrhea and vomiting resolved for a day or so but then restarted/continued through the weekend and patient feels dehydrated as he is not urinating as often as he does
routinely which prompted him to seek care in the emergency department today. He denies any chest pain, shortness of breath, headache, change in vision, weakness or any other symptoms at this time. Denies any headache. Denies any recent travel or
sick contact.
Past History
<Mendel Talbot MD, Resident - Last Filed: 09/25/24 09:44>
Past History
ED Past Medical History: CAD, HTN, Hypercholesterolemia, Psychiatric and Other (Pulmonary fibrosis, atrial tachycardia)
ED Past Surgical History: Orthopedic and Other (Ureteral obstruction at age 16)
Patient has exhibited threatening behavior?: No
Social History
Tobacco: Non-smoker
Alcohol: None
Drug: None
Personal: Partner
Living: with family
Employment: Employed
Family History
Family History: Other (Noncontributory)
Review of Systems
<Mendel Talbot MD, Resident - Last Filed: 09/25/24 09:44>
Review of Systems
Constitutional: Denies fever or chills
EENT: Denies sore throat or runny nose
Respiratory: Denies cough
Cardiac: Denies chest pain or diaphoresis
ABD/GI: Reports abdominal pain, vomiting and diarrhea
: Denies frequency, flank pain or urgency
Musculoskeletal: Denies joint pain
Skin: Denies rash
Neurological: Denies dizzy
Endocrine: Denies polyuria
Phy Exam
<Mendel Talbot MD, Resident - Last Filed: 09/25/24 09:44>
General Physical Exam
General Presentation: no apparent distress
General age: appears stated age
General Skin: warm
General Habitus: normal
General Mental: alert
Cardiovascular Exam
Cardiovascular Exam: no murmur and tachycardia
Pulmonary Exam
Pulmonary Exam: lungs clear and no crackles
Gastrointestinal Exam
Gastrointestinal Exam: non tender, soft, non distended and no cva tenderness
Neurological Exam
Neurological Exam: alert, oriented x3 and no motor deficits
Musculoskeletal Exam
Musculoskeletal Exam: full ROM
Course
<Mendel Talbot MD, Resident - Last Filed: 09/25/24 09:44>
Orders/Labs/Results
Orders:
Orders
09/25/24 05:45
EKG [Electrocardiogram (*1)] Urgent
Reason for Study: Bradycardia / Tachycardia
EKG- Treatment ONCE
09/25/24 06:00
CMP [Comprehensive Metabolic Panel] Urgent
Complete Blood Count/With Diff Urgent
Manual Differential Urgent
C difficile Antigen & Toxins Urgent
MARQUIS Source: Feces/Stool
Specimen Description:
Date Specimen was Collected: 09/25/24
Time Specimen was Collected: 05:50
Stool Culture Urgent
MARQUIS Source: Feces/Stool
Specimen Description:
Date Specimen was Collected: 09/25/24
Time Specimen was Collected: 05:50
09/25/24 06:51
0.9% Sodium Chloride 1000 ml [Nss] 1,000 ml IV BOLUS
09/25/24 07:44
0.9% Sodium Chloride 1000 ml [Nss] 1,000 ml IV BOLUS
09/25/24 08:01
0.9% Sodium Chloride 1000 ml [Nss] 1,000 ml IV BOLUS
Abnormal Lab Results
09/25/24
06:00
WBC 11.2 H 10^3/uL
(4.8-10.8)
Hgb 19.0 H g/dL
(13.0-18.0)
Hct 52.6 H %
(39.0-52.0)
MCH 32.3 H pg
(27.0-31.0)
MPV 10.8 H fL
(7.4-10.4)
Abs Neuts (Manual) 6.7 H 10^3/uL
(1.4-6.5)
Band Neutrophils 11 H %
(0-3)
Lymphocytes (Manual) 16 L %
(20-51)
Monocytes (Manual) 14 H %
(2-9)
Chloride 109 H mmol/L
(98-107)
Carbon Dioxide 19 L mmol/L
(22-30)
BUN 27 H mg/dl
(9-20)
Glucose 150 H mg/dl
(70-99)
09/25/24 06:00
09/25/24 06:00
Vital Signs
Initial and Last Documented VS:
Initial Vital Signs
Temp Pulse Resp BP Pulse Ox
97.5 F 141 20 128/86 99
09/25/24 05:39 09/25/24 05:39 09/25/24 05:39 09/25/24 05:39 09/25/24 05:39
Last Documented Vital Signs
Temp Pulse Resp BP Pulse Ox
97.5 F 97 17 128/86 99
09/25/24 05:39 09/25/24 08:30 09/25/24 08:21 09/25/24 05:39 09/25/24 06:29
<Hanna Mota, - Last Filed: 09/25/24 09:36>
Orders/Labs/Results
Orders:
Orders
09/25/24 05:45
EKG [Electrocardiogram (*1)] Urgent
Reason for Study: Bradycardia / Tachycardia
EKG- Treatment ONCE
09/25/24 06:00
CMP [Comprehensive Metabolic Panel] Urgent
Complete Blood Count/With Diff Urgent
Manual Differential Urgent
C difficile Antigen & Toxins Urgent
MARQUIS Source: Feces/Stool
Specimen Description:
Date Specimen was Collected: 09/25/24
Time Specimen was Collected: 05:50
Stool Culture Urgent
MARQUIS Source: Feces/Stool
Specimen Description:
Date Specimen was Collected: 09/25/24
Time Specimen was Collected: 05:50
09/25/24 06:51
0.9% Sodium Chloride 1000 ml [Nss] 1,000 ml IV BOLUS
09/25/24 07:44
0.9% Sodium Chloride 1000 ml [Nss] 1,000 ml IV BOLUS
09/25/24 08:01
0.9% Sodium Chloride 1000 ml [Nss] 1,000 ml IV BOLUS
Abnormal Lab Results
09/25/24
06:00
WBC 11.2 H 10^3/uL
(4.8-10.8)
Hgb 19.0 H g/dL
(13.0-18.0)
Hct 52.6 H %
(39.0-52.0)
MCH 32.3 H pg
(27.0-31.0)
MPV 10.8 H fL
(7.4-10.4)
Abs Neuts (Manual) 6.7 H 10^3/uL
(1.4-6.5)
Band Neutrophils 11 H %
(0-3)
Lymphocytes (Manual) 16 L %
(20-51)
Monocytes (Manual) 14 H %
(2-9)
Chloride 109 H mmol/L
(98-107)
Carbon Dioxide 19 L mmol/L
(22-30)
BUN 27 H mg/dl
(9-20)
Glucose 150 H mg/dl
(70-99)
09/25/24 06:00
09/25/24 06:00
Vital Signs
Initial and Last Documented VS:
Initial Vital Signs
Temp Pulse Resp BP Pulse Ox
97.5 F 141 20 128/86 99
09/25/24 05:39 09/25/24 05:39 09/25/24 05:39 09/25/24 05:39 09/25/24 05:39
Last Documented Vital Signs
Temp Pulse Resp BP Pulse Ox
97.5 F 97 17 128/86 99
09/25/24 05:39 09/25/24 08:30 09/25/24 08:21 09/25/24 05:39 09/25/24 06:29
<Mendel Talbot MD, Resident - Last Filed: 09/25/24 09:44>
MDM/Problems Addressed
Differential Diagnosis Includes:
viral enteritis vs other infectious causes vs IBS vs unlikely appendicitis
MDM/Problems Addressed:
EKG with sinus tachycardia
CBC with mild elevation of WBC to 11.2, hemoglobin of 19
CMP with BUN of 27, bilirubin 150. Patient feels very dehydrated because of ongoing diarrhea.
Give IV bolus normal saline 1 L
Stool studies pending
update:
C. difficile negative
Stool cultures still pending
Very likely that his symptoms are related to viral illness, education for antibiotics. Shared decision was made with patient to hold off any imaging studies.
Will give another liter of normal saline bolus
update: Patient offers no new complaints
Heart rate now improved to 90s
shared decision was made with the patient for discharge home and follow-up with PCP. Patient voices understanding and agreed with the plan
Return precautions reviewed.
Chronic conditions affecting care: HTN, CAD and Other (Pulmonary fibrosis)
<Mendel Talbot MD, Resident - Last Filed: 09/25/24 09:44>
*Pulse Oximetry
SaO2: 99
Oxygen Mode of Delivery: Room air
Patient hypoxic: no
*Critical Care Note
Total Time (30-74mins, 75-104mins- exclusive of procedures): Not Applicable
ED Attending Note
<Mendel Talbot MD, Resident - Last Filed: 09/25/24 09:44>
-
Portions of this chart may have been created with voice recognition software.� Occasional wrong word or��sound alike� substitutions may have occurred due to the inherent limitations of voice recognition software.
<Hanna Mota DO - Last Filed: 09/25/24 09:36>
ED Attending Note
Patient seen and examined by attending physician: Yes
I performed the substantive portion of visit, reviewed & personally made and approve the management plan that is documented in note by myself or GENESIS.: Yes
I performed a history and physical exam of patient and discussed management with resident, I reviewed resident's note and agree with documented findings and plan of care.: Yes
ED Attending Note:
79-year-old male with history of pulmonary fibrosis, atrial tachycardia, hypertension presenting to the emergency department with vomiting and diarrhea. Patient notes that he was recently overseas, was on a cruise, came home last Wednesday. When he
first came home, started to have flulike symptoms with bodyaches and generally feeling well. 3 days ago he started to have vomiting, which has since followed with diarrhea. Notes that he is having frequent bouts of diarrhea, every 20 minutes which
is very watery in consistency. Notes some cramping at onset of diarrhea, however denies any significant abdominal pain. Denies fever. Denies any recent antibiotic use. Denies chest pain or difficulty breathing. Denies any blood in the stool.
Vital signs on arrival are significant for tachycardia.
On exam patient is resting comfortably, no acute distress. Benign cardiac and pulmonary exam with exception of mild tachycardia. Patient with dry mucous membranes. Suspect acute dehydration. Will on abdominal exam, no focal tenderness to the
abdomen, soft and nondistended. Symptoms appear most consistent with gastroenteritis. Given frequency of output of diarrhea, C. difficile is a consideration, particularly given recent travel on a cruise. Plan for laboratory analysis and IV
fluids. No indication for advanced imaging of the abdomen given no significant tenderness. Patient was able to provide stool samples, will send.
08:00 - Labs show mild leukocytosis, consistent with underlying infection. Patient's hemoglobin is elevated which he has appeared to have in the past, however also suspect hemoconcentrated from dehydration. C. difficile is negative. Will continue
with supportive therapy
09:30 -heart rate has now normalized. Patient reports that he is feeling better. At this time feel stable for discharge with continued outpatient supportive therapy. Return precautions discussed and patient verbalized understanding
Discharge Plan
Departure
Patient Disposition: Home (Routine Discharge)
Date of Disposition: 09/25/24
Time of Disposition: 09:36
Patient with high blood pressure during this ER visit?: No
Condition: Good
Discharge Problem:
Gastroenteritis, Acute dehydration
Instructions: Viral gastroenteritis in adults, Dehydration, Adult (DC)
Prescriptions:
No Action
atorvastatin 40 mg Tablet
40 mg PO QPM
aspirin 81 mg Tablet,Delayed Release (Dr/Ec)
81 mg PO DAILY
spironolactone 25 mg Tablet
12.5 mg PO DAILY
diltiazem HCl 120 mg Capsule,Extended Release 24 Hr
120 mg PO DAILY
pirfenidone [Esbriet] 267 mg Capsule
801 mg PO TID
metoprolol succinate [Toprol XL] 50 mg Tablet Extended Release 24 Hr
50 mg PO BID
gabapentin 300 mg Capsule
300 mg PO TID
duloxetine [Cymbalta] 30 mg Capsule,Delayed Release(Dr/Ec)
30 mg PO BID
Wegovy 1.7 mg/0.75 mL Pen Injector
1.7 mg SC HOLLAND
cefdinir 300 mg capsule
300 mg PO Q12H 2 Days Qty: 4 0RF
doxycycline hyclate 100 mg capsule
100 mg PO BID 2 Days Qty: 4 0RF
Referrals:
Gonzalez Reeves DO [Family Provider, Family Practice]
Activity Restrictions/Additional Instructions:
You were seen in the emergency department for nausea, vomiting, diarrhea
You were found to have laboratory analysis consistent with dehydration. You were given IV fluids. You are suspected to have a viral gastroenteritis. Stool cultures were sent, and you will be called if any of the results are positive. Please
continue to hydrate and eat appropriate meals.
Please follow-up closely with your primary care physician.
Return to the emergency department for any worsening of your symptoms, or any development of chest pain, difficulty breathing, abdominal pain with persistent vomiting and inability to tolerate food or liquid by mouth (concern for dehydration),
weakness, headache or confusion, fever greater than 100.4, or any additional symptoms that are concerning to you.
Thank you for choosing [facility].
Interventions
Interventions:
*Risk Screen - Suicide Last Done: 09/25/24 05:39
*General Assessment Last Done: 09/25/24 05:39
*Neglect/Abuse Screening Last Done: 09/25/24 05:39
*ED- Fall Risk Assessment Last Done: 09/25/24 07:36
*ED COVID-19 Vaccine History Last Done: 09/25/24 05:39
JW-Ycwsym-Ptkmktusyl Assessment Last Done: 09/25/24 06:30
Discharge Date and Time
Print Language: [id number]
[2024-09-25 06:36] LABS: Hematocrit 52.6 % (39.0-52.0); Hemoglobin 19.0 g/dL (13.0-18.0); Mean Corp Hgb Conc. 36.1 g/dL (33.0-37.0); Mean Corpuscular Volume 89.5 fL (80.0-94.0); Platelet Count 215 10^3/uL (130-400); Red Cell Dist. Width 12.8 % (11.5-14.5)
[2024-09-25 06:39] LABS: ALT (SGPT) 17 U/L (0-50); AST (SGOT) 17 U/L (17-59); Albumin 4.2 g/dl (3.5-5.0); Alkaline Phosphatase 51 U/L (38-126); Blood Urea Nitrogen 27 mg/dl (9-20); Calcium 9.0 mg/dl (8.4-10.2); Carbon Dioxide 19 mmol/L (22-30); Chloride 109 mmol/L (98-107); Glucose 150 mg/dl (70-99); Potassium 3.7 mmol/L (3.5-5.1); Sodium 139 mmol/L (135-145); Total Protein 7.1 g/dl (6.3-8.2); eGFR > 60.00
[2024-09-25] MEDS: NSS 1000 IV ×2 (07:13→08:21)
[2024-09-25 07:14] VITALS: BMI 23.1
[2024-09-25 07:42] LABS: Absolute Neutrophils -Man Diff 6.7 10^3/uL (1.4-6.5); Platelets Checked Yes
[2024-09-25 07:43] LABS: Normal RBC Morphology Yes; Total Cells Counted 100
[2024-09-25 09:45] VITALS: BP 125/79
== END 2024-09-25 09:50 | disposition home or self-care (01) ==
LOC: EMR 05:35
PROVIDERS: Emergency Medicine; EMERGENCY PHYSICIAN Student in an Organized Health Care Education/Training Program; FAMILY PHYSICIAN Family Medicine
DX: K52.9 Noninfective gastroenteritis and colitis, unspecified (principal); E86.0 Dehydration; J84.10 Pulmonary fibrosis, unspecified; I47.19 Other supraventricular tachycardia; I10 Essential (primary) hypertension; E78.00 Pure hypercholesterolemia, unspecified; I25.10 Atherosclerotic heart disease of native coronary artery without angina pectoris; F32.A Depression, unspecified; Z79.82 Long term (current) use of aspirin; Z88.1 Allergy status to other antibiotic agents; Z88.0 Allergy status to penicillin
CPT/HCPCS: 99284; 96360; 96361; 80053; 85025; 87045; 87046; 87324; 87427; 87449; 93005

== ENCOUNTER → 2024-12-06 07:02 | Outpatient (REF) | payer OTHER, SELFPAY | LOC: RAD 07:02 | PROVIDERS: ATTENDING PHYSICIAN Internal Medicine Gastroenterology; FAMILY PHYSICIAN Family Medicine | DX: K70.30 Alcoholic cirrhosis of liver without ascites (principal); K74.60 Unspecified cirrhosis of liver | CPT/HCPCS: 76700 ==